=== PATIENT | male | born 1955 | race African-American/Black ===

== ENCOUNTER 2018-06-18 10:22 | Outpatient (CLI) | payer BC ==
[~2018-06-18 10:22] MED LIST: Iopamidol 370 76% 100 ML VIAL ONE
[2018-06-18 12:38] LABS: Estimated GFR-MDRD - POC Greater than 90
--- NOTE | 2018-06-18 15:48 | CT ---
CT ABDOMEN AND PELVIS WITH IV AND ORAL CONTRAST: HISTORY: Abdominal pain. COMPARISON: 09/27/2014. FINDINGS: Lung bases are clear. The liver, spleen, kidneys, adrenal glands, and pancreas have a normal CT appe arance. No enlarged lymph nodes or free fluid. Bowel is unremarkable. No evidence of obstruction o r inflammation. Appendix not well delineated. No findings of inflammation. Urinary bladder is unre markable. 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 IMPRESSION: No significant abnormalities are demonstrated. Chronic-type findings are stable. POS: [facility]
== END 2018-06-18 10:23 | disposition home or self-care (01) ==
LOC: SCSCT 10:22
PROVIDERS: ATTEND Internal Medicine Gastroenterology
DX: R10.11 Right upper quadrant pain (principal); R10.32 Left lower quadrant pain; R10.13 Epigastric pain
CPT/HCPCS: 74177; 82565

== ENCOUNTER 2018-10-21 07:20 | Outpatient (CLI) | payer BC ==
--- NOTE | 2018-10-21 08:18 | ULT ---
GALLBLADDER ULTRASOUND: HISTORY: Abdominal pain FINDINGS: The liver demonstrates homogeneous echotexture without focal mass or intrahepatic biliary ductal dila tation. No gallstones, gallbladder wall thickening or pericholecystic fluid are seen. The right kidney and pancreas are normal. The common duct measures 4 mm in diameter. No free fluid is seen in the Nicholson's pouch. IMPRESSION: Normal exam.
== END 2018-10-21 07:21 | disposition home or self-care (01) ==
LOC: ULT 07:20
PROVIDERS: ATTEND Internal Medicine Gastroenterology
DX: R10.12 Left upper quadrant pain (principal); R10.13 Epigastric pain
CPT/HCPCS: 76705

== ENCOUNTER 2019-06-07 02:16 | Emergency (ER) | payer BC ==
[2019-06-07] MEDS ORDERED: Morphine 4 MG/ML VIAL ONE (02:43)
[2019-06-07] MEDS ORDERED: Ondansetron PF 4 MG/2 ML Vial ONE (02:43)
[2019-06-07 02:46] LABS: #Basophils 0.1 thou/uL (0.0-0.2); #Eosinphils 0.2 thou/uL (0.0-0.7); #Lymphocytes 2.5 thou/uL (1.20-3.40); #Monocytes 0.6 thou/uL (0.11-0.59); #Neutrophils 3.2 thou/uL (1.40-6.50); %Basophils 1.1 % (0.0-1.0); %Eosinophils 2.9 % (0.0-10.0); %Lymphocytes 38.6 % (21.0-51.0); %Monocytes 8.4 % (0.0-10.0); %Neutrophils 49.1 % (42.0-75.0); Hemoglobin 14.6 g/dL (14.0-18.0); Mean Corpuscular HGB CONC 33.9 g/dL (32.0-36.0); Mean Corpuscular Hemoglobin 30.4 pg (27.0-31.0); Mean Corpuscular Volume 89.6 fL (78.0-98.0); Mean Platelet Volume 7.1 fL (7.4-10.4); Platelet Count 276 thou/uL (130-400); Red Blood Cell (RBC) Count 4.82 mill/uL (4.70-6.10); White Blood Cell (WBC) Count 6.6 thou/uL (4.8-10.8)
[2019-06-07 02:57] LABS: Bilirubin Negative (Negative); Blood, Urine Negative (Negative); Clarity Clear (Clear); Glucose, Urine (Dipstick) Normal (Negative); Leukocyte Negative Leu/uL (Negative); Nitrite Negative (Negative); Protein, Urine (Dipstick) Negative (Neg-Trace); Urobilinogen Normal mg/dL (Less than 2)
[2019-06-07 03:09] LABS: ALT (SGPT) 19 U/L (8-55); AST (SGOT) 21 U/L (5-34); Albumin 4.7 g/dL (3.4-4.8); Alkaline Phosphatase 60 U/L (40-110); Anion Gap 13 mmol/L (10-20); BUN (Urea Nitrogen) 12 mg/dL (8.4-25.7); Bilirubin, Total 0.9 mg/dL (0.2-1.2); Calc. Creatinine Clearance 0 mL/min (70-130); Calcium 9.8 mg/dL (7.8-10.44); Carbon Dioxide 28 mmol/L (23-31); Chloride 98 mmol/L (98-107); Estimated GFR-MDRD Greater than 90; Globulin 2.7 g/dL (2.4-3.5); Glucose 105 mg/dL (80-115); Lipase 12 U/L (8-78); Potassium 3.9 mmol/L (3.5-5.1); Protein, Total 7.4 g/dL (5.8-8.1); Sodium 135 mmol/L (136-145)
--- NOTE | 2019-06-07 08:21 | CT ---
PRELIMINARY REPORT/[facility]/AFTER HOURS PROCEDURE CT ABDOMEN AND PELVIS WITH INTRAVENOUS CONTRAST: CLINICAL HISTORY: M64 presents to ED for upper abdominal pain. Pt reports sx began 2 days ago, abdominal pain worst on left side, also c/o back pain on right side. Reports current sx are similar to chronic sx associated with IBS, but much worse. Denies fever, N/V/D, urinary sx. Pt reports using smokeless tobacco, drinki ng occasionally, denies drug use. GI doctor Dr. Alonzo, has colonoscopy scheduled for 06/11/19. Hx- IBS; varicocele surgery in past, no other abdominal surgeries. TECHNIQUE: Axial computed tomography images of the abdomen and pelvis with intravenous contrast. CONTRAST: With Isovue-[id number] mL. COMPARISON: None provided. FINDINGS: LUNG BASES: No basilar airspace consolidation or pleural effusion. LIVER: Unremarkable. GALLBLADDER AND BILE DUCTS: Unremarkable. No calcified stone. No ductal dilation. PANCREAS: Unremarkable. SPLEEN: Unremarkable. ADRENAL GLANDS: Unremarkable. KIDNEYS, URETERS, AND BLADDER: Unremarkable. No hydronephrosis or nephrolithiasis. No ureteral or nancy dder calculi. STOMACH AND BOWEL: No obstruction. No wall thickening. No CT evidence of colitis or acute diverticuli tis. APPENDIX: No CT evidence for appendicitis. PERITONEUM: No free fluid. No free air. LYMPH NODES: No lymphadenopathy. VASCULATURE: No aortic aneurysm. BONES: No fracture or suspicious osseous abnormality. ABDOMINAL WALL AND SOFT TISSUES: Unremarkable. IMPRESSION: No acute intra-abdominal or pelvic abnormality. ELECTRONICALLY SIGNED BY: Dayo Pruitt MD Jun 07, 2019 4:16:22 AM MANAGER PHOTOGRAPHY This report is intended for review by the ordering physician only, in accordance of law. If you recei ve this report in error, please call [facility] at [phone]. FINAL REPORT CT ABDOMEN AND PELVIS WITH IV CONTRAST: I agree with the preliminary report given by Dr. Dayo Pruitt of [facility]. 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 CODE QA POS: [facility]
[2019-06-07] MEDS ORDERED: Iopamidol-370 76% 500 ML 1 ML ONE (11:20)
== END 2019-06-07 04:52 | disposition home or self-care (01) ==
LOC: ERS 02:16
DX: R10.10 Upper abdominal pain, unspecified (principal); R10.817 Generalized abdominal tenderness; F17.220 Nicotine dependence, chewing tobacco, uncomplicated; Z79.899 Other long term (current) drug therapy
CPT/HCPCS: 74177; 80053; 81003; 83690; 85025; 93005; 96361; 96374; 96375; J2270; J2405; Q9967